=== PATIENT | male | born 1935 | race Hispanic/Latino ===

== ENCOUNTER 2016-08-08 10:50 | Inpatient (IN) | payer MEDICARE ==
[2016-08-08 11:58] LABS: Basophils % (Auto) 0.6 % (0.0-1.8); Eosinophils % (Auto) 0.1 % (0.0-4.3); Hematocrit 39.2 % (35.5-45.6); Hemoglobin 13.2 gm/dl (11.8-15.2); Mean Corpuscular HGB Conc 34 % (32-34); Mean Corpuscular Hemoglobin 31 pg (28-32); Mean Corpuscular Volume 91 fl (84-94); Platelet Count 186 K/mm3 (140-440); Red Blood Count 4.33 M/mm3 (3.65-5.03); Red Cell Distribution Width 14.2 % (13.2-15.2); White Blood Count 10.1 K/mm3 (4.5-11.0)
[2016-08-08 12:16] LABS: Calcium 8.4 mg/dL (8.4-10.2); Chloride 96.3 mmol/L (98-107); Potassium 3.6 mmol/L (3.6-5.0)
--- NOTE | 2016-08-08 12:33 | Emergency Department Report ---
HPI - General Chief Complaint: Syncope Time Seen by Provider: 08/08/16 11:55 - HPI HPI: Room 8 The patient is an 81-year-old male presenting with a chief complaint of syncope. The patient is a poor historian but the lead sustainability specialist states this morning the patient was getting up from bed when he was witnessed shaking and then fell back to the bed. The patient states his full dizzy for the past 3-4 days. Patient admits to headache nausea and vomiting. The patient also acknowledges his had chest pain for "a few days." Location: [see above] Duration: [see above] Quality: Unknown Severity: Moderate Modifying factors: [see above] Context: [see above] Mode of transportation: [not driving] ED Past Medical Hx - Past Medical History Hx Hypertension: Yes Hx Congestive Heart Failure: Yes Additional medical history: high cholesterol. cardiomyopathy - Surgical History Hx Coronary Stent: Yes Hx Pacemaker: Yes - Family History Family history: no significant - Social History Smoking Status: Former Smoker Substance Use Type: None - Medications Home Medications: Home Medications Medication Instructions Recorded Confirmed Last Taken Type Apixaban [Eliquis] 2.5 mg PO BID 08/08/16 08/08/16 Unknown History Docusate Sodium [Colace] 100 mg PO DAILY 08/08/16 08/08/16 Unknown History Escitalopram [Lexapro] 10 mg PO DAILY 08/08/16 08/08/16 Unknown History Ferrous Sulfate [Feosol] 325 mg PO QDAY 08/08/16 08/08/16 Unknown History ISOSORBIDE MONOnitrate [Imdur ER] 30 mg PO DAILY 08/08/16 08/08/16 Unknown History Levothyroxine [Synthroid] 50 mcg PO QAM 08/08/16 08/08/16 Unknown History QUEtiapine [SEROquel] 25 mg PO QHS 08/08/16 08/08/16 Unknown History amLODIPine [Norvasc] 10 mg PO DAILY 08/08/16 08/08/16 Unknown History traMADol [Ultram] 50 mg PO BID PRN 08/08/16 08/08/16 Unknown History ED Review of Systems ROS: Stated complaint: POSS SEIZURE Other details as noted in HPI Comment: All other systems reviewed and negative Constitutional: denies: chills, fever Eyes: denies: eye pain, eye discharge, vision change ENT: denies: ear pain, throat pain Respiratory: denies: cough, shortness of breath, wheezing Cardiovascular: chest pain Endocrine: no symptoms reported Gastrointestinal: nausea, vomiting Genitourinary: denies: urgency, dysuria Musculoskeletal: denies: back pain, joint swelling, arthralgia Skin: denies: rash, lesions Neurological: headache, other (possible seizure, dizziness) Psychiatric: denies: anxiety, depression Hematological/Lymphatic: denies: easy bleeding, easy bruising Physical Exam - Physical Exam Vital Signs: Vital Signs 08/08/16 11:14 Temperature 98.0 F Pulse Rate 60 Respiratory 20 Rate Blood Pressure 140/65 O2 Sat by Pulse 90 Oximetry Physical Exam: GENERAL: The patient is well-developed well-nourished male lying on stretcher not appearing to be in acute distress. [] HEENT: Normocephalic. Atraumatic. Extraocular motions are intact. Patient has moist mucous membranes. NECK: Supple. Trachea midline CHEST/LUNGS: Clear to auscultation. There is no respiratory distress noted. HEART/CARDIOVASCULAR: Regular. There is no tachycardia. There is no gallop rub or murmur. ABDOMEN: Abdomen is soft, nontender. Patient has normal bowel sounds. There is no abdominal distention. SKIN: There is no rash. There is no edema. There is no diaphoresis. NEURO: The patient is awake and alert. The patient is cooperative. The patient has no focal neurologic deficits. The patient has normal speech. Cranial nerves II through XII grossly intact, MUSCULOSKELETAL: There is no evidence of acute injury. ED Course Vital Signs 08/08/16 11:14 Temperature 98.0 F Pulse Rate 60 Respiratory 20 Rate Blood Pressure 140/65 O2 Sat by Pulse 90 Oximetry ED Medical Decision Making - Lab Data Result diagrams: 08/08/16 11:41 08/08/16 11:41 Laboratory Tests 08/08/16 08/08/16 08/08/16 11:41 11:41 11:57 WBC 10.1 RBC 4.33 Hgb 13.2 Hct 39.2 MCV 91 MCH 31 MCHC 34 RDW 14.2 Plt Count 186 Lymph % (Auto) 6.8 L [place] % (Auto) 7.2 Eos % (Auto) 0.1 Baso % (Auto) 0.6 Lymph # 0.7 L [place] # 0.7 Eos # 0.0 Baso # 0.1 Seg Neutrophils % 85.3 H Seg Neutrophils # 8.6 H Sodium 137 Potassium 3.6 Chloride 96.3 L Carbon Dioxide 22 Anion Gap 22 BUN 16 Creatinine 1.6 H Estimated GFR 41 BUN/Creatinine Ratio 10.00 Glucose 110 H Calcium 8.4 Magnesium 1.9 Troponin T 0.926 H* TSH Free T4 08/08/16 11:57 WBC RBC Hgb Hct MCV MCH MCHC RDW Plt Count Lymph % (Auto) [place] % (Auto) Eos % (Auto) Baso % (Auto) Lymph # [place] # Eos # Baso # Seg Neutrophils % Seg Neutrophils # Sodium Potassium Chloride Carbon Dioxide Anion Gap BUN Creatinine Estimated GFR BUN/Creatinine Ratio Glucose Calcium Magnesium Troponin T TSH 5.900 H Free T4 1.27 - EKG Data -: EKG Interpreted by Me EKG shows normal: sinus rhythm Rate: normal - EKG Data When compared to previous EKG there are: previous EKG unavailable Interpretation: other (paced rhythm) - Radiology Data Radiology results: report reviewed (CT head), image reviewed (CT head, chest x- ray) interpreted by me: Chest [id number] left hemidiaphragm. Right hilar fullness CT head (read by radiologist)-no acute intracranial CT abnormality on this limited exam, though new right sphenoid sinus opacification other mild sinusitis noted with stable age-appropriate atrophy, microvascular changes and a few other incidental findings. - Differential Diagnosis ICH, seizure disorder, electrolyte abnormality, ACS Critical care attestation.: If time is entered above; I have spent that time in minutes in the direct care of this critically ill patient, excluding procedure time. ED Disposition Clinical Impression: Chest pain, Syncope, Elevated troponin Disposition: OP ADMITTED IP TO THIS HOSP Is pt being admited?: Yes Does the pt Need Aspirin: No (renal insufficiency. Will give Plavix instead) Condition: Stable Instructions: Chest Pain (ED), Syncope (ED) Referrals: PRIMARY CARE, [Primary Care Provider] - 3-5 Days Time of Disposition: 13:33 (hospitalist notified)
--- NOTE | 2016-08-08 12:40 | Cat Scan Report ---
CT HEAD WITHOUT CONTRAST INDICATION: Syncope, dizziness, possible seizure. COMPARISON: 06/07/2016. FINDINGS: Noncontrast head CT, repeated for motion, again demonstrates symmetric, age-appropriate sulcal enlargement. Stable normal ventricles with mild to moderate periventricular white matter hypodense small vessel ischemic disease and few small lacunar infarcts measuring up to 4 mm on the left, axial image 34, series 4. Slight benign bilateral basal ganglia calcifications as well. No definite acute infarct, hemorrhage, mass effect or midline shift. No abnormal extra axial fluid collections. Normal posterior fossa with preserved basilar cisterns. Stable bilateral cataract surgery. Possible partial absence of nasal septum anteriorly may be incompletely imaged as on axial image 3, amongst others. Mild leftward nasal septal bowing. Slight ethmoid and right maxillary sinus mucosal thickening while moderate to severe right sphenoid sinus opacification is new. Clear remainder imaged paranasal sinuses and few aerated temporal bone air cells. Non-pneumatized mastoids. Atherosclerotic internal carotid and vertebral artery calcifications. Bilateral external auditory canal debris may be directly visualized. Intact calvarium. Normal scalp. Edentulous jaw. Cervical spondylosis. CONCLUSION: No acute intracranial CT abnormality on this limited exam, though new right sphenoid sinus opacification and other mild sinusitis noted with stable age appropriate atrophy, microvascular changes and few other incidental findings, as described. Please correlate. Thank you for the opportunity to participate in this patient's care.
[2016-08-08] MEDS ORDERED: KEPPRA 1,000 MG/NS 0.75% 100ML 1,000 MG/100 ML BAG IV ONE (12:59)
[2016-08-08] MEDS ORDERED: MORPHINE IV ONE (13:03)
[2016-08-08] MEDS ORDERED: PLAVIX PO ONE (13:03)
[2016-08-08] MEDS ORDERED: NITRO-BID 2% TP ONE (13:03)
[2016-08-08] MEDS ORDERED: ZOFRAN IV ONE (13:03)
--- NOTE | 2016-08-08 13:42 | Admit Criteria Form ---
Admission Criteria Documentation: SYNCOPE Clinical Indications for Admission to Inpatient Care ( Place 'X' for any and all applicable criteria): Admission is indicated for syncope and ANY ONE of the following (1)(2)(3)(4)(5) (6)(7) : [X]I. Inpatient admission required rather than observation care (Also use Syncope: Observation Care Criteria as appropriate) because of ANY ONE of the following: [ ]a) Hemodynamic instability that is severe or persistent [ ]b) Cardiac arrhythmias of immediate concern identified or strongly suspected (eg, needs electrophysiologic study) [X]c) Acute coronary syndrome identified (Also use Myocardial Infarction or Angina Criteria form ) [ ]d) Structural cardiac disorder (eg, aortic stenosis) suspected as cause that requires immediate correction [ ]e) Respiratory symptoms (eg, dyspnea, tachypnea) that are severe or persistent [ ]f) Neurologic signs or symptoms that are severe or persistent ( eg, stroke, seizures, altered mental status) [ ]g) Severe electrolyte abnormalities requiring inpatient care [ ]h) Supplemental oxygen or respiratory treatment for over 24 hrs that are performable only in acute inpatient setting [ ]i) IV fluid to replace significant ongoing (eg, for over 24 hrs ) losses (>3 L/m2 per day) [ ]j) Continuous intravenous infusion of anticoagulation, platelet inhibitor, vasoactive, or antiarrhythmic medication(15)(16) [ ]k) Pulmonary artery catheter monitoring [ ]l) Temporary pacemaker placement(17) [ ]m) Emergent cardioversion(18) [X]n) Other conditions, treatment or monitoring requiring inpatient admission [ ]II. Suspicion of imminently dangerous cause (eg, rare causes like pericardial tamponade, pulmonary embolism) [ ]III. Syncope causing severe injury requiring hospitalization Extended stay beyond goal length of stay may be needed for(28) [ ]a) Dangerous arrhythmia(15)(23)(27)(29) [ ]b) Myocardial ischemia [ ]c) Seizure disorder [ ]d) Syncope-related injuries The original [employer] content created by [employer] has been revised. The portions of the content which have been revised are identified through the use of italic text or in bold, and [facility] has neither reviewed nor approved the modified material. All other unmodified content is copyright [facility] [employer]. Please see references footnoted in the original [facility] edition 2016 Admission Criteria Met: Yes
--- NOTE | 2016-08-08 14:15 | XRay Report ---
PORTABLE CHEST INDICATION: Chest pain. COMPARISON: None similar. FINDINGS: Portable, frontal chest radiographs, 2 images, demonstrate left-sided pacemaker with tripolar dual-chamber leads, post CABG changes, mild aortic knob calcifications, prominent bronchovascular markings centrally and towards the lung bases and somewhat prominent yani, right more so than the left. Left hemidiaphragm may be mildly elevated with subjacent splenic flexure lucency. Subtle left retrocardiac opacity obscuring the left hemidiaphragm medially not entirely excluded. EKG leads. Possible osteopenia. CONCLUSION: Findings, as above. Direct comparison with similar prior imaging would also be helpful, if available. Thank you for the opportunity to participate in this patient's care.
[2016-08-08 15:45] LABS: Urine Drugs of Abuse Note Disclamer
[2016-08-08] MEDS ORDERED: DULCOLAX PR PRN (15:47)
[2016-08-08] MEDS ORDERED: ZOFRAN IV PRN (15:47)
[2016-08-08] MEDS ORDERED: MILK OF MAGNESIA PO PRN (15:47)
[2016-08-08] MEDS ORDERED: TYLENOL PO PRN (15:47)
[2016-08-08] MEDS ORDERED: D5NS 1,000 ML IV SCH (16:00)
--- NOTE | 2016-08-08 16:04 | History and Physical Report ---
History of Present Illness Date of examination: 08/08/16 Date of admission: 08/08/16 13:35 Chief complaint: Patient is a 81-year-old white male with history of congestive heart failure hypertension coronary artery disease and hypercholesterolemia was seen in the emergency room with complaints of possible seizures. History of present illness: Patient is a 81-year-old white male with history of congestive heart failure hypertension coronary artery disease and hypercholesterolemia was seen in the emergency room with complaints of possible seizures. Patient is a very poor historian although he is awake and alert and oriented to his name but unable to tell how old he is. His speech is incomprehensible but he responds to questions and follows commands appropriately. He denies any pain or chest pain. At this time I'm unable to get any history from the patient. Reviewing the chart patient apparently was noted to have some seizure-like activity with shaking. According to the ED physician note there is history of syncope but patient is unable to give any history of passing out. His troponin levels were noted to be abnormal. Cardiology consult was requested. Patient is not in any distress and did he denies any cough or shortness of breath or headaches though this is somewhat unreliable Past History Past Medical History: CAD, heart failure, hypertension, hyperlipidemia Past Surgical History: CABG, PTCA (with stent), Other (prominent pacemaker placement) Social history: no significant social history Family history: no significant family history (unknown), other Medications and Allergies Allergies Allergy/AdvReac Type Severity Reaction Status Date / Time No Known Allergies Allergy Verified 12/12/15 11:21 Home Medications Medication Instructions Recorded Confirmed Last Taken Type Apixaban [Eliquis] 2.5 mg PO BID 08/08/16 08/08/16 Unknown History Docusate Sodium [Colace] 100 mg PO DAILY 08/08/16 08/08/16 Unknown History Escitalopram [Lexapro] 10 mg PO DAILY 08/08/16 08/08/16 Unknown History Ferrous Sulfate [Feosol] 325 mg PO QDAY 08/08/16 08/08/16 Unknown History ISOSORBIDE MONOnitrate [Imdur ER] 30 mg PO DAILY 08/08/16 08/08/16 Unknown History Levothyroxine [Synthroid] 50 mcg PO QAM 08/08/16 08/08/16 Unknown History QUEtiapine [SEROquel] 25 mg PO QHS 08/08/16 08/08/16 Unknown History amLODIPine [Norvasc] 10 mg PO DAILY 08/08/16 08/08/16 Unknown History traMADol [Ultram] 50 mg PO BID PRN 08/08/16 08/08/16 Unknown History Active Meds: Active Medications Acetaminophen (Tylenol) 650 mg PO Q4H PRN PRN Reason: Pain MILD(1-3)/Fever >100.5/PAREDES Bisacodyl (Dulcolax) 10 mg NV QDAY PRN PRN Reason: Constipation unrelieved by MOM Dextrose/Sodium Chloride (D5ns) 1,000 mls @ 42 mls/hr IV DIRECT GALLITO Magnesium Hydroxide (Milk Of Magnesia) 30 ml PO Q4H PRN PRN Reason: Constipation Ondansetron HCl (Zofran) 4 mg IV Q8H PRN PRN Reason: N/V unrelieved by Reglan Review of Systems All systems: negative (as stated above in the history of present illness) Exam - Constitutional Vitals: Temp Pulse Resp BP Pulse Ox 98.0 F 60 20 132/73 93 08/08/16 11:14 08/08/16 13:39 08/08/16 13:39 08/08/16 13:39 08/08/16 13:39 General appearance: Present: no acute distress, well-nourished - EENT Eyes: Present: PERRL, EOM intact ENT: hearing intact, clear oral mucosa - Neck Neck: Present: supple, normal ROM. Absent: masses or JVD - Respiratory Respiratory effort: normal Respiratory: bilateral: CTA, diminished, negative: rales, rhonchi - Cardiovascular Rhythm: regular Heart Sounds: Present: S1 & S2 - Extremities Extremities: No edema - Abdominal General gastrointestinal: Present: soft, non-tender. Absent: hepatomegaly, splenomegaly - Integumentary Integumentary: Present: clear - Musculoskeletal Musculoskeletal: strength equal bilaterally - Neurologic Neurologic: CNII-XII intact, no focal deficits, moves all extremities Results - Labs CBC & Chem 7: 08/08/16 11:41 08/08/16 11:41 Labs: Abnormal lab results 08/08/16 Range/Units 14:15 Troponin T 0.920 H* (0.00-0.029) ng/mL Assessment and Plan - Patient Problems (1) New onset seizure Current Visit: Yes Status: Acute Plan to address problem: History is not very clear We will order EEG Continue Keppra for now Neurology consult was also requested CT of the head shows no acute lesions Seizure precautions (2) Cardiomyopathy Current Visit: Yes Status: Chronic Plan to address problem: Clinically he is not in CHF proBNP was not done Chest Xray shows increased hilar vascular mrkings. Await cardiology evaluation to see if he has CHF (3) Hyperlipidemia Current Visit: Yes Status: Chronic Qualifiers: Hyperlipidemia type: H Plan to address problem: Continue statin (4) Coronary artery disease Current Visit: Yes Status: Chronic Qualifiers: Coronary Disease-Associated Artery/Lesion type: C [place] vs. transplanted heart: N Associated angina: A Plan to address problem: Continue apixaban and nitrates (5) Elevated troponin Current Visit: Yes Status: Acute Plan to address problem: EKG shows pacemaker rhythm He has 2 sets of elevated troponin Await cardiology evaluation Patient denies any chest pain at this time (6) Syncope Current Visit: Yes Status: Acute Qualifiers: Syncope type: S Encounter type: E Plan to address problem: History is not clear Possible Postictal syncope Presently he is awake and alert
[2016-08-08 16:25] LABS: Creatine Kinase MB 1.9 ng/mL (0.0-4.0)
--- NOTE | 2016-08-08 16:45 | Consultation ---
History of Present Illness Consult date: 08/08/16 Consult reason: chest pain, elevated troponin History of present illness: This is an 81yr old male who is admitted with seizure like activity. Patient is a poor historian, history unobtainable. Cardiac consultation requested for chest pain and elevated troponin. Patient appears comfortable in bed. He currently denies chest pain. He denies shortness of breath and palpitations. An ECG shows a paced ventricular rhythm. Laboratory values shows a normal CK of 122 and CK/MB of 1.9. Troponin 0.92. Review of records shows a known history of coronary artery disease with remote 3 vessel bypass surgery. He has a history of paroxysmal atrial fibrillation and is on low dose eliquis for stroke prophylaxis. He also has a permanent pacemaker. A cardiac cath done 2008 reports two of three grafts patent. More recently a persantine stress thallium at [facility] 2014 reports a small apical defect recommended for medical therapy. Past History Past Medical History: CAD, heart failure, hypertension, hyperlipidemia Past Surgical History: CABG, PTCA (with stent), Other (prominent pacemaker placement) Social history: no significant social history Family history: no significant family history (unknown), other Medications and Allergies Allergies Allergy/AdvReac Type Severity Reaction Status Date / Time No Known Allergies Allergy Verified 12/12/15 11:21 Home Medications Medication Instructions Recorded Confirmed Last Taken Type Apixaban [Eliquis] 2.5 mg PO BID 08/08/16 08/08/16 Unknown History Docusate Sodium [Colace] 100 mg PO DAILY 08/08/16 08/08/16 Unknown History Escitalopram [Lexapro] 10 mg PO DAILY 08/08/16 08/08/16 Unknown History Ferrous Sulfate [Feosol] 325 mg PO QDAY 08/08/16 08/08/16 Unknown History ISOSORBIDE MONOnitrate [Imdur ER] 30 mg PO DAILY 08/08/16 08/08/16 Unknown History Levothyroxine [Synthroid] 50 mcg PO QAM 08/08/16 08/08/16 Unknown History QUEtiapine [SEROquel] 25 mg PO QHS 08/08/16 08/08/16 Unknown History amLODIPine [Norvasc] 10 mg PO DAILY 08/08/16 08/08/16 Unknown History traMADol [Ultram] 50 mg PO BID PRN 08/08/16 08/08/16 Unknown History Active Meds: Active Medications Acetaminophen (Tylenol) 650 mg PO Q4H PRN PRN Reason: Pain MILD(1-3)/Fever >100.5/PAREDES Amlodipine Besylate (Norvasc) 5 mg PO DAILY GALLITO Apixaban (Eliquis) 2.5 mg PO BID GALLITO Bisacodyl (Dulcolax) 10 mg [place] QDAY PRN PRN Reason: Constipation unrelieved by MOM Docusate Sodium (Colace) 100 mg PO DAILY GALLITO Escitalopram Oxalate (Lexapro) 10 mg PO DAILY GALLITO Dextrose/Sodium Chloride (D5ns) 1,000 mls @ 42 mls/hr IV DIRECT GALLITO Isosorbide Mononitrate (Imdur) 30 mg PO DAILY GALLITO Levetiracetam (Keppra) 500 mg PO BID GALLITO Levothyroxine Sodium (Synthroid) 50 mcg PO QAM GALLITO Magnesium Hydroxide (Milk Of Magnesia) 30 ml PO Q4H PRN PRN Reason: Constipation Ondansetron HCl (Zofran) 4 mg IV Q8H PRN PRN Reason: N/V unrelieved by Reglan Quetiapine Fumarate (Seroquel) 25 mg PO QHS [facility] Physical Examination Vital Signs Temp Pulse Resp BP Pulse Ox 98.0 F 60 20 140/65 90 08/08/16 11:14 08/08/16 11:14 08/08/16 11:14 08/08/16 11:14 08/08/16 11:14 General appearance: no acute distress HEENT: Positive: PERRL Neck: Positive: trachea midline Cardiac: Positive: Other (venticular paced) Lungs: Positive: Decreased Breath Sounds Neuro: Positive: Grossly Intact Extremities: Absent: edema Results 08/08/16 11:41 08/08/16 11:41 Cardiac Enzymes 08/08/16 Range/Units 15:42 CK-MB (CK-2) 1.9 (0.0-4.0) ng/mL EKG interpretations - Telemetry EKG Rhythm: Paced Assessment and Plan Possible seizure Elevated troponin pt denies chest pain Hx of CAD with 3 vessel CABG LHC 2008 at [facility] report 2 of 3 grafts patent MPI 2015: small apical defect treated medically Presence of PPM Paroxysmal Afib on low dose eliquis for anticoagulation Hypertension
[2016-08-08] MEDS ORDERED: AMBIEN PO PRN (19:26)
[2016-08-08] MEDS: ELIQUIS PO SCH (22:24)
[2016-08-08] MEDS: KEPPRA PO SCH (22:24)
[2016-08-09 06:04] LABS: Eosinophils % (Auto) 1.4 % (0.0-4.3); Hematocrit 36.8 % (35.5-45.6); Hemoglobin 12.3 gm/dl (11.8-15.2); Mean Corpuscular HGB Conc 33 % (32-34); Mean Corpuscular Hemoglobin 30 pg (28-32); Mean Corpuscular Volume 91 fl (84-94); Platelet Count 176 K/mm3 (140-440); Red Blood Count 4.04 M/mm3 (3.65-5.03); Red Cell Distribution Width 13.8 % (13.2-15.2); White Blood Count 7.4 K/mm3 (4.5-11.0)
[2016-08-09 06:23] LABS: BUN/Creatinine Ratio 11.66; Calcium 8.3 mg/dL (8.4-10.2); Chloride 97.4 mmol/L (98-107); Potassium 3.4 mmol/L (3.6-5.0)
[2016-08-09] MEDS: LEXAPRO PO SCH (10:01)
[2016-08-09] MEDS: IMDUR PO SCH (10:02)
[2016-08-09] MEDS: NORVASC PO SCH (10:03)
[2016-08-09] MEDS: SYNTHROID PO SCH (10:03)
[2016-08-09] MEDS: ELIQUIS PO SCH ×2 (10:03→22:08)
[2016-08-09] MEDS: KEPPRA PO SCH ×2 (10:03→22:08)
[2016-08-09] MEDS: COLACE PO SCH (10:03)
--- NOTE | 2016-08-09 10:12 | Consultation ---
History of Present Illness Consult date: 08/09/16 Requesting physician: IRAJ FARNSWORTH Reason for Consult: seizure Chief complaint: chest pain and needing PPM battery replaced History of present illness: 81 YO M hx extensive cardiac disease p/w chest pain and reported lightheadedness when he changes position. Sx have been ongoing for last 2-3 days. Sx last minutes. They are triggered when he changes position such as rising from seated position. They do not occur when laying flat. There are no relieving factors beyond laying down. There are no other temporal factors. Severity is such to cause concern to NH staff who report he may have lost consciousness. There was no clear tongue bite, incontinence or premonitory repetitive movements or post episode residual deficit. Past History Past Medical History: CAD, heart failure, hypertension, hyperlipidemia Past Surgical History: CABG, PTCA (with stent), Other (prominent pacemaker placement) Social history: no significant social history Family history: no significant family history (unknown), other Medications and Allergies Allergies Allergy/AdvReac Type Severity Reaction Status Date / Time No Known Allergies Allergy Verified 12/12/15 11:21 Home Medications Medication Instructions Recorded Confirmed Last Taken Type Apixaban [Eliquis] 2.5 mg PO BID 08/08/16 08/08/16 Unknown History Docusate Sodium [Colace] 100 mg PO DAILY 08/08/16 08/08/16 Unknown History Escitalopram [Lexapro] 10 mg PO DAILY 08/08/16 08/08/16 Unknown History Ferrous Sulfate [Feosol] 325 mg PO QDAY 08/08/16 08/08/16 Unknown History ISOSORBIDE MONOnitrate [Imdur ER] 30 mg PO DAILY 08/08/16 08/08/16 Unknown History Levothyroxine [Synthroid] 50 mcg PO QAM 08/08/16 08/08/16 Unknown History QUEtiapine [SEROquel] 25 mg PO QHS 08/08/16 08/08/16 Unknown History amLODIPine [Norvasc] 10 mg PO DAILY 08/08/16 08/08/16 Unknown History traMADol [Ultram] 50 mg PO BID PRN 08/08/16 08/08/16 Unknown History Active Meds: Active Medications Acetaminophen (Tylenol) 650 mg PO Q4H PRN PRN Reason: Pain MILD(1-3)/Fever >100.5/PAREDES Amlodipine Besylate (Norvasc) 5 mg PO DAILY [facility] Last Admin: 08/09/16 10:03 Dose: 5 mg Apixaban (Eliquis) 2.5 mg PO BID [facility] Last Admin: 08/09/16 10:03 Dose: 2.5 mg Bisacodyl (Dulcolax) 10 mg IN QDAY PRN PRN Reason: Constipation unrelieved by MOM Docusate Sodium (Colace) 100 mg PO DAILY [facility] Last Admin: 08/09/16 10:03 Dose: 100 mg Escitalopram Oxalate (Lexapro) 10 mg PO DAILY [facility] Last Admin: 08/09/16 10:01 Dose: 10 mg Dextrose/Sodium Chloride (D5ns) 1,000 mls @ 42 mls/hr IV DIRECT [facility] Isosorbide Mononitrate (Imdur) 30 mg PO DAILY [facility] Last Admin: 08/09/16 10:02 Dose: 30 mg Levetiracetam (Keppra) 500 mg PO BID [facility] Last Admin: 08/09/16 10:03 Dose: 500 mg Levothyroxine Sodium (Synthroid) 50 mcg PO QAM [facility] Last Admin: 08/09/16 10:03 Dose: 50 mcg Magnesium Hydroxide (Milk Of Magnesia) 30 ml PO Q4H PRN PRN Reason: Constipation Ondansetron HCl (Zofran) 4 mg IV Q8H PRN PRN Reason: N/V unrelieved by Reglan Quetiapine Fumarate (Seroquel) 25 mg PO QHS [facility] Last Admin: 08/08/16 22:24 Dose: 25 mg Zolpidem Tartrate (Ambien) 5 mg PO QHS PRN PRN Reason: Sleep Review of Systems All systems: negative Constitutional: fatigue, weakness, malaise, lethargy, daytime sleepiness Cardiovascular: chest pain, syncope, lightheadedness, shortness of breath, dyspnea on exertion Neurological: syncope, gait dysfunction Physical Examination - Vital Signs Vital Signs: Vital Signs Temp Pulse Resp BP Pulse Ox 98.0 F 60 20 140/65 90 08/08/16 11:14 08/08/16 11:14 08/08/16 11:14 08/08/16 11:14 08/08/16 11:14 - Constitutional General appearance: comfortable, chronically ill - EENT EENT: Present: ATNC, PERRL, mucous membranes dry, hearing intact, vision intact - Respiratory Respiratory: Present: chest non-tender, normal breath sounds, no respiratory distress - Cardiovascular Cardiovascular: Present: regular rate Extremities: Present: no peripheral edema bilatateraly, no clubbing, cyanosis, no inflammation, no ischemia or petechiae - Gastrointestinal Gastrointestinal: Present: normoactive bowel sounds, non-distended - Integumentary Integumentary: Present: normal - Neurologic Cranial nerve examination: PERRL, EOMI, VFF, V1/V2/V3 grossly intact, face symmetric, tongue midline, intact, intact shoulder shrug, intact cough reflex, Intact Vestibulo-ocular r, intact corneal reflex, normal palatal elevation Speech examination: intact Sensorimotor examination: intact Detailed motor examination: full strength in all dana Motor examination - right side: 5/5: biceps, triceps, wrist flexion, wrist extension, forge press operator, hip flexors, knee extensors, dorsiflexion, toe extension (EHL) , plantarflexion Motor examination - left side: 5/5: biceps, triceps, wrist flexion, wrist extension, forge press operator, hip flexors, knee extensors, dorsiflexion, toe extension (EHL) , plantarflexion Detailed sensory examination: intact, light touch, temperature Reflex and gait examination: intact Reflexes: 1+: ankle, bicep, knee, tricep - Musculoskeletal Musculoskeletal: Present: no fluid collection, no pain, normal range of motion - Psychiatric Psychiatric: Present: mood/affect appropriate, cooperative Results - Laboratory Findings CBC and BMP: 08/09/16 05:00 08/09/16 05:00 Abnormal Lab Findings: Abnormal Labs 08/08/16 08/08/16 08/08/16 14:15 15:42 16:54 [place] % (Auto) Lymph # Seg Neutrophils % Potassium Chloride BUN Creatinine Calcium Troponin T 0.920 H* 0.934 H* NT-Pro-B Natriuret Pep 3573 H 08/09/16 08/09/16 05:00 05:00 [place] % (Auto) 8.1 H Lymph # 1.1 L Seg Neutrophils % 74.8 H Potassium 3.4 L Chloride 97.4 L BUN 21 H Creatinine 1.8 H Calcium 8.3 L Troponin T NT-Pro-B Natriuret Pep Assessment and Plan 81 YO M Hx extensive cardiac disease s/p PPM and syncope p/w marked CP sx of chest pain, SOB and also classic presyncopal syndrome when he changes position and w/o premonitory epileptiform activity e.g aura/automatism or post episode residual deficit e.g. post ictal state to suggest seizure. He does have diffuse resting and action tremor which is likely enhanced physiologic tremor from JOSE also causing mild toxic encephalopathy. I suspect orthostatic syncope. CTH neg. Plan and Recommendation: 1. Telemetry bed w/ Q4 hour neuro checks 2. Labs: Serum/Urine Tox, UA/UCx, Electrolytes especially Na, Ca, Mg, and Glucose, TSH, 3. AED therapy: No clear indication for AED therapy 4. Orthostatic vital signs 5. Conservative management e.g. tapering of BP meds, Hitesh Hose, encourage PO intake, etc 6. With seemingly clear etiology for syncope there is no clear grounds for driving privilege withdrawal 7. We can revisit as needed. Pt neurologically clear for discharge.
--- NOTE | 2016-08-09 11:20 | Progress Note ---
Assessment and Plan Possible seizure Elevated troponin pt denies chest pain Hx of CAD with 3 vessel CABG LHC 2008 at [place] report 2 of 3 grafts patent Echo at [place] 05/2016- EF 40-45% Presence of PPM Paroxysmal Afib on low dose eliquis for anticoagulation Hypertension Subjective Date of service: 08/09/16 Interval history: Patient denies chest pain and shortness of breath. No cardiac events overnight. Objective Vital Signs Temp Pulse Pulse Resp BP BP BP 08/09/16 10:03 80 126/70 08/09/16 10:02 80 126/70 08/09/16 08:10 98.6 F 60 16 126/70 08/09/16 08:00 08/09/16 05:30 97.8 F 60 20 149/65 08/09/16 00:05 97.9 F 59 L 20 119/68 08/09/16 00:03 20 08/08/16 20:37 60 08/08/16 20:32 99.6 F 60 20 118/70 08/08/16 16:00 60 16 123/71 08/08/16 14:41 22 08/08/16 13:39 60 20 132/73 Pulse Ox 08/09/16 10:03 08/09/16 10:02 08/09/16 08:10 93 08/09/16 08:00 95 08/09/16 05:30 95 08/09/16 00:05 95 08/09/16 00:03 08/08/16 20:37 08/08/16 20:32 96 08/08/16 16:00 93 08/08/16 14:41 95 08/08/16 13:39 93 - Physical Examination General: No Apparent Distress HEENT: Positive: PERRL Neck: Positive: trachea midline Cardiac: Positive: Other (paced) Lungs: Positive: Decreased Breath Sounds Neuro: Positive: Grossly Intact Extremities: Absent: edema - Labs and Meds Cardiac Enzymes 08/08/16 Range/Units 15:42 CK-MB (CK-2) 1.9 (0.0-4.0) ng/mL CBC 08/09/16 Range/Units 05:00 WBC 7.4 (4.5-11.0) K/mm3 RBC 4.04 (3.65-5.03) M/mm3 Hgb 12.3 (11.8-15.2) gm/dl Hct 36.8 (35.5-45.6) % Plt Count 176 (140-440) K/mm3 Lymph # 1.1 L (1.2-5.4) K/mm3 [place] # 0.6 (0.0-0.8) K/mm3 Eos # 0.1 (0.0-0.4) K/mm3 Baso # 0.1 (0.0-0.1) K/mm3 Comprehensive Metabolic Panel 08/09/16 Range/Units 05:00 Sodium 138 (137-145) mmol/L Potassium 3.4 L (3.6-5.0) mmol/L Chloride 97.4 L (98-107) mmol/L Carbon Dioxide 24 (22-30) mmol/L BUN 21 H (9-20) mg/dL Creatinine 1.8 H (0.8-1.5) mg/dL Glucose 96 (75-100) mg/dL Calcium 8.3 L (8.4-10.2) mg/dL
--- NOTE | 2016-08-09 16:33 | Progress Note ---
Assessment and Plan Assessment and plan: Syncopal episode - Likely from orthostatic hypertension - Adjust his BP meds Elevated troponin level - History of CABG Shortness of breath No chest pain JOSE History of A.fib contininue apixiban Cardiology and neurology consult appreciated History Interval history: Patient was seen and evaluated this morning, patient complains SOB, denies chest pain. Hospitalist Physical - Physical exam Narrative exam: Not in cardiopulmonary distress. The patient appeared well nourished and normally developed. Vital signs as documented. Head exam is unremarkable. No scleral icterus . Neck is without jugular venous distension, thyromegaly, or carotid bruits. Lungs are clear to auscultation. Cardiac exam reveals regular rate and Rhythm. First and second heart sounds normal. No murmurs, rubs or gallops. Abdominal exam reveals normal bowel sounds, no masses, no organomegaly and no aortic enlargement. Extremities are nonedematous and both femoral and pedal pulses are normal. FUR FARMER: Alert and oriented 3. No focal weakness. - Constitutional Vitals: Temp Pulse Resp BP Pulse Ox 98.1 F 60 18 119/56 91 08/09/16 16:07 08/09/16 16:07 08/09/16 16:07 08/09/16 16:07 08/09/16 16:07 General appearance: Present: no acute distress Results - Labs CBC & Chem 7: 08/09/16 05:00 08/09/16 05:00 Labs: Laboratory Last Values WBC 7.4 K/mm3 (4.5-11.0) 08/09/16 05:00 RBC 4.04 M/mm3 (3.65-5.03) 08/09/16 05:00 Hgb 12.3 gm/dl (11.8-15.2) 08/09/16 05:00 Hct 36.8 % (35.5-45.6) 08/09/16 05:00 MCV 91 fl (84-94) 08/09/16 05:00 MCH 30 pg (28-32) 08/09/16 05:00 MCHC 33 % (32-34) 08/09/16 05:00 RDW 13.8 % (13.2-15.2) 08/09/16 05:00 Plt Count 176 K/mm3 (140-440) 08/09/16 05:00 Lymph % (Auto) 14.7 % (13.4-35.0) 08/09/16 05:00 [place] % (Auto) 8.1 % (0.0-7.3) H 08/09/16 05:00 Eos % (Auto) 1.4 % (0.0-4.3) 08/09/16 05:00 Baso % (Auto) 1.0 % (0.0-1.8) 08/09/16 05:00 Lymph # 1.1 K/mm3 (1.2-5.4) L 08/09/16 05:00 [place] # 0.6 K/mm3 (0.0-0.8) 08/09/16 05:00 Eos # 0.1 K/mm3 (0.0-0.4) 08/09/16 05:00 Baso # 0.1 K/mm3 (0.0-0.1) 08/09/16 05:00 Seg Neutrophils % 74.8 % (40.0-70.0) H 08/09/16 05:00 Seg Neutrophils # 5.6 K/mm3 (1.8-7.7) 08/09/16 05:00 Sodium 138 mmol/L (137-145) 08/09/16 05:00 Potassium 3.4 mmol/L (3.6-5.0) L 08/09/16 05:00 Chloride 97.4 mmol/L (98-107) L 08/09/16 05:00 Carbon Dioxide 24 mmol/L (22-30) 08/09/16 05:00 Anion Gap 20 mmol/L 08/09/16 05:00 BUN 21 mg/dL (9-20) H 08/09/16 05:00 Creatinine 1.8 mg/dL (0.8-1.5) H 08/09/16 05:00 Estimated GFR 36 ml/min 08/09/16 05:00 BUN/Creatinine Ratio 11.66 % 08/09/16 05:00 Glucose 96 mg/dL (75-100) 08/09/16 05:00 Calcium 8.3 mg/dL (8.4-10.2) L 08/09/16 05:00 Magnesium 1.9 mg/dL (1.7-2.3) 08/08/16 11:57 Total Creatine Kinase 122 units/L (55-170) 08/08/16 15:42 CK-MB (CK-2) 1.9 ng/mL (0.0-4.0) 08/08/16 15:42 CK-MB (CK-2) Rel Index 1.5 (0-4) 08/08/16 15:42 Troponin T 0.934 ng/mL (0.00-0.029) H* 08/08/16 16:54 NT-Pro-B Natriuret Pep 3573 pg/mL (0-900) H 08/08/16 15:42 Triglycerides 73 mg/dL (2-149) 08/08/16 11:41 Cholesterol 190 mg/dL (50-199) 08/08/16 11:41 LDL Cholesterol Direct 131 mg/dL (50-130) H 08/08/16 11:41 HDL Cholesterol 45 mg/dL (40-59) 08/08/16 11:41 Cholesterol/HDL Ratio 4.22 % 08/08/16 11:41 TSH 5.900 mlU/mL (0.270-4.200) H 08/08/16 11:57 Free T4 1.27 ng/dL (0.76-1.46) 08/08/16 11:57 Urine Opiates Screen Presumptive positive 08/08/16 Unknown Urine Methadone Screen Presumptive negative 08/08/16 Unknown Ur Barbiturates Screen Presumptive negative 08/08/16 Unknown Ur Phencyclidine Scrn Presumptive negative 08/08/16 Unknown Ur Amphetamines Screen Presumptive negative 08/08/16 Unknown U Benzodiazepines Scrn Presumptive negative 08/08/16 Unknown Urine Cocaine Screen Presumptive negative 08/08/16 Unknown U Marijuana (THC) Screen Presumptive negative 08/08/16 Unknown Drugs of Abuse Note Disclamer 08/08/16 Unknown
[2016-08-10 05:52] LABS: Basophils % (Auto) 0.9 % (0.0-1.8); Eosinophils % (Auto) 2.6 % (0.0-4.3); Hematocrit 35.2 % (35.5-45.6); Hemoglobin 11.6 gm/dl (11.8-15.2); Mean Corpuscular HGB Conc 33 % (32-34); Mean Corpuscular Hemoglobin 30 pg (28-32); Mean Corpuscular Volume 91 fl (84-94); Platelet Count 179 K/mm3 (140-440); Red Blood Count 3.85 M/mm3 (3.65-5.03); Red Cell Distribution Width 13.8 % (13.2-15.2); White Blood Count 6.4 K/mm3 (4.5-11.0)
[2016-08-10 05:53] LABS: BUN/Creatinine Ratio 15.62; Calcium 8.1 mg/dL (8.4-10.2); Chloride 96.8 mmol/L (98-107); Potassium 3.3 mmol/L (3.6-5.0)
--- NOTE | 2016-08-10 08:45 | Cat Scan Report ---
CT scan of chest without IV contrast: History: Shortness of breath. Findings: No endobronchial or mediastinal mass. No mediastinal, hilar or axillary adenopathy. Minimal bilateral pleural effusion. No pericardial effusion. Diameter of the ascending aorta 4.2 cm. Diameter of descending thoracic aorta 3.4 cm. Diameter of the main pulmonary trunk 3.1 cm. Diameter of the right and left pulmonary artery branch 3.1 cm. Large airspace opacities with air bronchograms noted in the right lower lobe with scattered airspace opacities right upper lobe. Impression: Aortic aneurysm. Pulmonary arterial hypertension findings. Airspace opacities right lung suggestive of pneumonitis. The
[2016-08-10] MEDS: SYNTHROID PO SCH (09:29)
[2016-08-10] MEDS: KEPPRA PO SCH ×2 (09:29→21:32)
[2016-08-10] MEDS: LEXAPRO PO SCH (09:29)
[2016-08-10] MEDS: ELIQUIS PO SCH ×2 (09:29→21:33)
[2016-08-10] MEDS: NORVASC PO SCH (09:30)
[2016-08-10] MEDS: COLACE PO SCH (09:30)
--- NOTE | 2016-08-10 10:28 | Progress Note ---
Assessment and Plan Possible seizure Abnormal CXR -fluffy right hilar infiltrate With regards to his underlying coronary artery disease, will pursue a conservative cardiac approach with medical management. Elevated troponin pt denies chest pain Hx of CAD with 3 vessel CABG [facility] 2008 at [place] report 2 of 3 grafts patent Echo at [place] 05/2016- EF 40-45% Presence of PPM Paroxysmal Afib on low dose eliquis for anticoagulation Hypertension Recommend Further evaluation including possible pulmonary evaluation of this abnormality on the chest x-ray. Conservative cardiac management. Subjective Date of service: 08/10/16 Interval history: Patient denies chest pain and shortness of breath. No cardiac events overnight. Objective Vital Signs Temp Pulse Pulse Resp BP BP Pulse Ox 08/10/16 09:30 118/88 08/10/16 07:46 98.4 F 60 20 118/68 92 08/10/16 05:34 97.8 F 60 20 122/70 95 08/10/16 01:00 98.4 F 60 20 120/72 95 08/09/16 20:31 92 08/09/16 20:26 98.0 F 60 20 112/58 94 08/09/16 20:21 80 08/09/16 16:07 98.1 F 60 18 119/56 91 08/09/16 11:26 98.2 F 60 20 123/67 - Physical Examination General: No Apparent Distress HEENT: Positive: PERRL Neck: Positive: trachea midline Cardiac: Positive: Reg Rate and Rhythm Neuro: Positive: Grossly Intact Extremities: Absent: edema - Labs and Meds CBC 08/10/16 Range/Units 04:44 WBC 6.4 (4.5-11.0) K/mm3 RBC 3.85 (3.65-5.03) M/mm3 Hgb 11.6 L (11.8-15.2) gm/dl Hct 35.2 L (35.5-45.6) % Plt Count 179 (140-440) K/mm3 Lymph # 1.2 (1.2-5.4) K/mm3 [place] # 0.6 (0.0-0.8) K/mm3 Eos # 0.2 (0.0-0.4) K/mm3 Baso # 0.1 (0.0-0.1) K/mm3 Comprehensive Metabolic Panel 08/10/16 Range/Units 04:44 Sodium 136 L (137-145) mmol/L Potassium 3.3 L (3.6-5.0) mmol/L Chloride 96.8 L (98-107) mmol/L Carbon Dioxide 24 (22-30) mmol/L BUN 25 H (9-20) mg/dL Creatinine 1.6 H (0.8-1.5) mg/dL Glucose 91 (75-100) mg/dL Calcium 8.1 L (8.4-10.2) mg/dL
--- NOTE | 2016-08-10 10:37 | Electroencephalogram Report ---
Electroencephalogram EEG Date of exam: 08/09/16 History: 81 YO M p/w syncope and possible convulsion. Impression: Normal awake and drowsy 20 minute routine EEG. There are no findings to suggest cerebral dysfunction, cortical irritability, epileptiform discharges or electrographic seizures. Please note however that a normal EEG does not completely exclude a clinical diagnosis of epilepsy. Description: The waking background shows an appropriate organization with well-defined anterior posterior voltage and frequency gradients. Posteriorly, there is a well -developed alpha rhythm of 9-10 Hz which is symmetrical and bilaterally reactive. Anteriorly, there is a pattern of lower voltage and slightly irregular theta and beta range frequencies. During drowsiness, there is attenuation of the background rhythms. There are no findings of sleep. HV was not performed. PS produced no response. Throughout, the recording there are no epileptiform abnormalities, focal or lateralizing features, or significant interhemispheric findings. Interpretation: This is a digitally acquired 21-channel electroencephalogram. Both bipolar and referential montages were used in interpretation. Electrodes were placed in accordance with the International 10-20 system.
--- NOTE | 2016-08-10 11:09 | Consultation ---
History of Present Illness Consult date: 08/10/16 Reason for consult: dyspnea History of present illness: Called to evaluate an 80-year-old male, admitted with a history of chest pain and possible dyspnea. The pupils are poorly presented with chest pain in the context of prior congestive heart failure and CAD. Cardiology note showed that the patient had been seen at [place] previously and had an echo with an ejection fraction of 40-45%. He underwent further radiographic and chest ct evaluation which showed evidence of possible pulmonary hypertension. We are called to evaluate from pulmonary standpoint because of questionable dyspnea. On my review with the patient, he is very hard of hearing, lost his hearing aid and is very difficult to establish any dyspnea pattern. he appeared to complain of some dyspnea upon exertion but his main complaint appears to be prior chest pain. no family at the bedside for further symptom review. i'll probably no cough or wheezing but again very hard to evaluate symptom klein Past History Past Medical History: CAD, heart failure, hypertension, hyperlipidemia Past Surgical History: CABG, PTCA (with stent), Other (prominent pacemaker placement) Social history: no significant social history Family history: no significant family history (unknown), other Medications and Allergies Allergies Allergy/AdvReac Type Severity Reaction Status Date / Time No Known Allergies Allergy Verified 12/12/15 11:21 Home Medications Medication Instructions Recorded Confirmed Last Taken Type Apixaban [Eliquis] 2.5 mg PO BID 08/08/16 08/08/16 Unknown History Docusate Sodium [Colace] 100 mg PO DAILY 08/08/16 08/08/16 Unknown History Escitalopram [Lexapro] 10 mg PO DAILY 08/08/16 08/08/16 Unknown History Ferrous Sulfate [Feosol] 325 mg PO QDAY 08/08/16 08/08/16 Unknown History ISOSORBIDE MONOnitrate [Imdur ER] 30 mg PO DAILY 08/08/16 08/08/16 Unknown History Levothyroxine [Synthroid] 50 mcg PO QAM 08/08/16 08/08/16 Unknown History QUEtiapine [SEROquel] 25 mg PO QHS 08/08/16 08/08/16 Unknown History amLODIPine [Norvasc] 10 mg PO DAILY 08/08/16 08/08/16 Unknown History traMADol [Ultram] 50 mg PO BID PRN 08/08/16 08/08/16 Unknown History Active Meds: Active Medications Acetaminophen (Tylenol) 650 mg PO Q4H PRN PRN Reason: Pain MILD(1-3)/Fever >100.5/PAREDES Amlodipine Besylate (Norvasc) 5 mg PO DAILY [facility] Last Admin: 08/10/16 09:30 Dose: 5 mg Apixaban (Eliquis) 2.5 mg PO BID [facility] Last Admin: 08/10/16 09:29 Dose: 2.5 mg Bisacodyl (Dulcolax) 10 mg DE QDAY PRN PRN Reason: Constipation unrelieved by [facility] Docusate Sodium (Colace) 100 mg PO DAILY [facility] Last Admin: 08/10/16 09:30 Dose: 100 mg Escitalopram Oxalate (Lexapro) 10 mg PO DAILY [facility] Last Admin: 08/10/16 09:29 Dose: 10 mg Dextrose/Sodium Chloride (D5ns) 1,000 mls @ 42 mls/hr IV DIRECT [facility] Isosorbide Mononitrate (Imdur) 30 mg PO DAILY [facility] Last Admin: 08/09/16 10:02 Dose: 30 mg Levetiracetam (Keppra) 500 mg PO BID [facility] Last Admin: 08/10/16 09:29 Dose: 500 mg Levothyroxine Sodium (Synthroid) 50 mcg PO QAM [facility] Last Admin: 08/10/16 09:29 Dose: 50 mcg Magnesium Hydroxide (Milk Of Magnesia) 30 ml PO Q4H PRN PRN Reason: Constipation Ondansetron HCl (Zofran) 4 mg IV Q8H PRN PRN Reason: N/V unrelieved by Reglan Quetiapine Fumarate (Seroquel) 25 mg PO QHS [facility] Last Admin: 08/09/16 22:08 Dose: 25 mg Zolpidem Tartrate (Ambien) 5 mg PO QHS PRN PRN Reason: Sleep Review of Systems ROS unobtainable: due to mental status (hard of hearing) Physical Examination Vital signs: Vital Signs Temp Pulse Resp BP Pulse Ox 98.0 F 60 20 140/65 90 08/08/16 11:14 08/08/16 11:14 08/08/16 11:14 08/08/16 11:14 08/08/16 11:14 General appearance: no acute distress, alert Eyes: non-icteric ENT: oropharynx moist Neck: supple, no lymphadenopathy Effort: normal Ascultation: Bilateral: clear Percussion: Bilateral: not dull Cardiovascular: regular rate and rhythm Gastrointestinal: normoactive bowel sounds, non-distended Integumentary: normal Extremities: no cyanosis, no edema Musculoskeletal: no deformities normal mental status (very limited evaluation in view of hearing limitation), non-focal exam, pupils equal and round, CN II-XII normal (hearing abnormal) mood appropriate Results - Laboratory Findings CBC and BMP: 08/10/16 04:44 08/10/16 04:44 Abnormal lab findings: Abnormal Labs 08/08/16 08/08/16 08/08/16 14:15 15:42 16:54 Hgb Hct [place] % (Auto) Lymph # Seg Neutrophils % Sodium Potassium Chloride BUN Creatinine Calcium Troponin T 0.920 H* 0.934 H* NT-Pro-B Natriuret Pep 3573 H 08/09/16 08/09/16 08/10/16 05:00 05:00 04:44 Hgb 11.6 L Hct 35.2 L [place] % (Auto) 8.1 H 8.6 H Lymph # 1.1 L Seg Neutrophils % 74.8 H Sodium Potassium 3.4 L Chloride 97.4 L BUN 21 H Creatinine 1.8 H Calcium 8.3 L Troponin T NT-Pro-B Natriuret Pep 08/10/16 04:44 Hgb Hct [place] % (Auto) Lymph # Seg Neutrophils % Sodium 136 L Potassium 3.3 L Chloride 96.8 L BUN 25 H Creatinine 1.6 H Calcium 8.1 L Troponin T NT-Pro-B Natriuret Pep - Diagnostic Findings Chest x-ray: report reviewed CT scan - chest: report reviewed, image reviewed Assessment and Plan Dyspnea. There limited evaluation but based on record review my first impression will be congestive heart failure related. Patient with elevated BNP at presentation and prior history of the low normal EF. Pulmonary hypertension. Clinically, appears to be related to type II disease presentation Congestive heart failure with compensation Cardiomyopathy CAD Recommendations Continue oxygen support. Ambulate on room air and evaluate for possible oxygen saturation. Oxygen if under 88% Continue CHF management If any wheezing or chest congestion, can add short-acting bronchodilator Will need outpatient evaluation to evaluate dyspnea for artery including COPD/ PFT testing Update influenza and pneumonia vaccination if needed Thanks
[2016-08-10] MEDS: IMDUR PO SCH (16:39)
--- NOTE | 2016-08-10 17:48 | Progress Note ---
Assessment and Plan Assessment and plan: Syncopal episode - Likely from orthostatic hypertension - Adjust his BP meds -Neurology consulted and EEG was negative Elevated troponin level - History of CABG Shortness of breath - Pulmonary was consulted - CT was done No chest pain JOSE History of A.sandra contininue apixiban Cardiology and neurology consult appreciated Disposition: Will discharge him tomorrow History Interval history: Patient was seen and evaluated this morning, patient complains SOB, denies chest pain. Hospitalist Physical - Physical exam Narrative exam: Not in cardiopulmonary distress. The patient appeared well nourished and normally developed. Vital signs as documented. Head exam is unremarkable. No scleral icterus . Neck is without jugular venous distension, thyromegaly, or carotid bruits. Lungs are clear to auscultation. Cardiac exam reveals regular rate and Rhythm. First and second heart sounds normal. No murmurs, rubs or gallops. Abdominal exam reveals normal bowel sounds, no masses, no organomegaly and no aortic enlargement. Extremities are nonedematous and both femoral and pedal pulses are normal. 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 No focal weakness. - Constitutional Vitals: Temp Pulse Resp BP Pulse Ox 98.6 F 60 18 122/74 96 08/10/16 15:25 08/10/16 16:27 08/10/16 16:27 08/10/16 16:39 08/10/16 16:27 General appearance: Present: no acute distress Results - Labs CBC & Chem 7: 08/10/16 04:44 08/10/16 04:44 Labs: Laboratory Last Values WBC 6.4 K/mm3 (4.5-11.0) 08/10/16 04:44 RBC 3.85 M/mm3 (3.65-5.03) 08/10/16 04:44 Hgb 11.6 gm/dl (11.8-15.2) L 08/10/16 04:44 Hct 35.2 % (35.5-45.6) L 08/10/16 04:44 MCV 91 fl (84-94) 08/10/16 04:44 MCH 30 pg (28-32) 08/10/16 04:44 MCHC 33 % (32-34) 08/10/16 04:44 RDW 13.8 % (13.2-15.2) 08/10/16 04:44 Plt Count 179 K/mm3 (140-440) 08/10/16 04:44 Lymph % (Auto) 18.8 % (13.4-35.0) 08/10/16 04:44 [place] % (Auto) 8.6 % (0.0-7.3) H 08/10/16 04:44 Eos % (Auto) 2.6 % (0.0-4.3) 08/10/16 04:44 Baso % (Auto) 0.9 % (0.0-1.8) 08/10/16 04:44 Lymph # 1.2 K/mm3 (1.2-5.4) 08/10/16 04:44 [place] # 0.6 K/mm3 (0.0-0.8) 08/10/16 04:44 Eos # 0.2 K/mm3 (0.0-0.4) 08/10/16 04:44 Baso # 0.1 K/mm3 (0.0-0.1) 08/10/16 04:44 Seg Neutrophils % 69.1 % (40.0-70.0) 08/10/16 04:44 Seg Neutrophils # 4.4 K/mm3 (1.8-7.7) 08/10/16 04:44 Sodium 136 mmol/L (137-145) L 08/10/16 04:44 Potassium 3.3 mmol/L (3.6-5.0) L 08/10/16 04:44 Chloride 96.8 mmol/L (98-107) L 08/10/16 04:44 Carbon Dioxide 24 mmol/L (22-30) 08/10/16 04:44 Anion Gap 19 mmol/L 08/10/16 04:44 BUN 25 mg/dL (9-20) H 08/10/16 04:44 Creatinine 1.6 mg/dL (0.8-1.5) H 08/10/16 04:44 Estimated GFR 41 ml/min 08/10/16 04:44 BUN/Creatinine Ratio 15.62 % 08/10/16 04:44 Glucose 91 mg/dL (75-100) 08/10/16 04:44 Calcium 8.1 mg/dL (8.4-10.2) L 08/10/16 04:44 Magnesium 1.9 mg/dL (1.7-2.3) 08/08/16 11:57 Total Creatine Kinase 122 units/L (55-170) 08/08/16 15:42 CK-MB (CK-2) 1.9 ng/mL (0.0-4.0) 08/08/16 15:42 CK-MB (CK-2) Rel Index 1.5 (0-4) 08/08/16 15:42 Troponin T 0.934 ng/mL (0.00-0.029) H* 08/08/16 16:54 NT-Pro-B Natriuret Pep 3573 pg/mL (0-900) H 08/08/16 15:42 Triglycerides 73 mg/dL (2-149) 08/08/16 11:41 Cholesterol 190 mg/dL (50-199) 08/08/16 11:41 LDL Cholesterol Direct 131 mg/dL (50-130) H 08/08/16 11:41 HDL Cholesterol 45 mg/dL (40-59) 08/08/16 11:41 Cholesterol/HDL Ratio 4.22 % 08/08/16 11:41 TSH 5.900 mlU/mL (0.270-4.200) H 08/08/16 11:57 Free T4 1.27 ng/dL (0.76-1.46) 08/08/16 11:57 Urine Opiates Screen Presumptive positive 08/08/16 Unknown Urine Methadone Screen Presumptive negative 08/08/16 Unknown Ur Barbiturates Screen Presumptive negative 08/08/16 Unknown Ur Phencyclidine Scrn Presumptive negative 08/08/16 Unknown Ur Amphetamines Screen Presumptive negative 08/08/16 Unknown U Benzodiazepines Scrn Presumptive negative 08/08/16 Unknown Urine Cocaine Screen Presumptive negative 08/08/16 Unknown U Marijuana (THC) Screen Presumptive negative 08/08/16 Unknown Drugs of Abuse Note Disclamer 08/08/16 Unknown
--- NOTE | 2016-08-11 10:29 | Discharge Summary ---
Providers - Providers Date of Admission: 08/08/16 13:35 Date of discharge: 08/11/16 Attending physician: SILAS SALDIVAR MD 08/08/16 15:51 Consult to Physician [CONS] Routine Consulting Provider: RILEY ROLLINS Reason For Exam: seizure new onset Notified:: please call 08/09/16 09:44 Physical Therapy Evaluation and Treat [CONS] Routine Comment: eval for needs Reason For Exam: syncope & collapse 08/10/16 08:16 Consult to Physician [CONS] Routine Consulting Provider: PINKY VALVERDE Reason For Exam: Shortness of breath Place consult to:: Pulmonary Notified:: OFFICE Phone number called:: [phone] Was contact made?: Yes If yes, spoke with:: BRIDGETT Time called:: 10:01 Primary care physician: REGIONAL CLIMATE CHANGE ANALYST Hospitalization Reason for admission: syncope, SOB Condition: Stable Pertinent studies: CT chest Disposition: DISCHARGED TO HOME OR SELFCARE Time spent for discharge: 31 minutes - Discharge Diagnoses (1) Chest pain Status: Acute Qualifiers: Chest pain type: C (2) Elevated troponin Status: Acute (3) Syncope Status: Acute Qualifiers: Syncope type: S Encounter type: E (4) Cardiomyopathy Status: Chronic Core Measure Documentation - Palliative Care Palliative Care/ Comfort Measures: Not Applicable - Core Measures Any of the following diagnoses?: none Exam - Physical Exam Narrative exam: Not in cardiopulmonary distress. The patient appeared well nourished and normally developed. Vital signs as documented. Head exam is unremarkable. No scleral icterus . Neck is without jugular venous distension, thyromegaly, or carotid bruits. Lungs are clear to auscultation. Cardiac exam reveals regular rate and Rhythm. First and second heart sounds normal. No murmurs, rubs or gallops. Abdominal exam reveals normal bowel sounds, no masses, no organomegaly and no aortic enlargement. Extremities are nonedematous and both femoral and pedal pulses are normal. 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 No focal weakness. - Constitutional Vitals: Temp Pulse Resp BP Pulse Ox 98.6 F 69 18 138/76 95 08/11/16 04:06 08/11/16 07:42 08/11/16 04:06 08/11/16 04:06 08/11/16 09:50 Plan Activity: advance as tolerated Weight Bearing Status: Weight Bear as Tolerated Diet: low fat, low cholesterol, low salt Follow up with: PRIMARY CAREMD [Primary Care Provider] - 3-5 Days SHANIQUA DOUGLAS MD [Staff Physician] - 7 Days Prescriptions: ALBUTEROL Inhaler [ProAir HFA Inhaler] 2 puff IH QID PRN #1 can PRN Reason: Shortness Of Breath
[2016-08-11] MEDS: NORVASC PO SCH (10:45)
[2016-08-11] MEDS: COLACE PO SCH (10:45)
[2016-08-11] MEDS: SYNTHROID PO SCH (10:46)
[2016-08-11] MEDS: IMDUR PO SCH (10:46)
[2016-08-11] MEDS: LEXAPRO PO SCH (10:46)
[2016-08-11] MEDS: KEPPRA PO SCH (10:46)
[2016-08-11] MEDS: ELIQUIS PO SCH (10:46)
[2016-08-11 15:22] VITALS: BP 135/81
--- NOTE | 2016-08-11 15:41 | Progress Note ---
Assessment and Plan Dyspnea. There limited evaluation but based on record review my first impression will be congestive heart failure related. Patient with elevated BNP at presentation and prior history of the low normal EF. Pulmonary hypertension. 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 Will follow-up in the office as outpatient for further evaluation and treatment of pulmonary hypertension Subjective Date of service: 08/11/16 Interval history: Patient feeling fairly well. No new complaints. Off oxygen. Awaiting discharge Objective Vital Signs - 12hr 08/11/16 08/11/16 08/11/16 04:00 04:06 07:42 Temperature 98.6 F Pulse Rate 60 69 Pulse Rate [ 37 L Left Radial] Respiratory 18 Rate Blood Pressure 138/76 [Left Radial Artery] O2 Sat by Pulse 98 Oximetry 08/11/16 08/11/16 08/11/16 09:30 09:50 15:00 Temperature 98.2 F 97.9 F Pulse Rate Pulse Rate [ 102 H 60 Left Radial] Respiratory 20 20 Rate Blood Pressure 135/92 135/81 [Left Radial Artery] O2 Sat by Pulse 98 95 93 Oximetry Constitutional: no acute distress, alert Eyes: non-icteric ENT: oropharynx moist Neck: supple, no lymphadenopathy Effort: normal Ascultation: Bilateral: clear Percussion: Bilateral: not dull Cardiovascular: regular rate and rhythm Gastrointestinal: normoactive bowel sounds, non-distended Integumentary: normal Extremities: no cyanosis, no edema Neurologic: normal mental status (very limited evaluation in view of hearing limitation), non-focal exam, pupils equal and round, CN II-XII normal (hearing abnormal) Psychiatric: mood appropriate CBC and BMP: 08/10/16 04:44 08/10/16 04:44 Abnormal lab findings: Abnormal Labs 08/08/16 08/08/16 08/08/16 14:15 15:42 16:54 Hgb Hct [place] % (Auto) Lymph # Seg Neutrophils % Sodium Potassium Chloride BUN Creatinine POC Glucose Calcium Troponin T 0.920 H* 0.934 H* NT-Pro-B Natriuret Pep 3573 H 08/09/16 08/09/16 08/10/16 05:00 05:00 04:44 Hgb 11.6 L Hct 35.2 L [place] % (Auto) 8.1 H 8.6 H Lymph # 1.1 L Seg Neutrophils % 74.8 H Sodium Potassium 3.4 L Chloride 97.4 L BUN 21 H Creatinine 1.8 H POC Glucose Calcium 8.3 L Troponin T NT-Pro-B Natriuret Pep 08/10/16 08/10/16 04:44 17:15 Hgb Hct [place] % (Auto) Lymph # Seg Neutrophils % Sodium 136 L Potassium 3.3 L Chloride 96.8 L BUN 25 H Creatinine 1.6 H POC Glucose 125 H Calcium 8.1 L Troponin T NT-Pro-B Natriuret Pep
== END 2016-08-11 15:58 | disposition home or self-care (01) | DRG 100 ==
LOC: ED 10:50 → 4A 13:35
PROVIDERS: ADMIT Internal Medicine; ATTEND Internal Medicine
DX: R56.9 Unspecified convulsions (principal); G92 Toxic encephalopathy; I42.9 Cardiomyopathy, unspecified; N17.9 Acute kidney failure, unspecified; R07.9 Chest pain, unspecified; I11.0 Hypertensive heart disease with heart failure; R79.89 Other specified abnormal findings of blood chemistry; E78.5 Hyperlipidemia, unspecified; I50.9 Heart failure, unspecified; I25.10 Atherosclerotic heart disease of native coronary artery without angina pectoris; I48.0 Paroxysmal atrial fibrillation; I27.2 Other secondary pulmonary hypertension; Z87.891 Personal history of nicotine dependence; Z95.1 Presence of aortocoronary bypass graft; Z98.61 Coronary angioplasty status
CPT/HCPCS: 36415; 70450; 71010; 71250; 80048; 80061; 80307; 82550; 82553; 82962; 83735; 83880; 84439; 84443; 84484; 85025; 93005; 93010; 94760; 95819; 96374; 96375; J1953; J2270; J2405